=== PATIENT | female | born 1970 | race Hispanic/Latino ===

== ENCOUNTER → 2024-08-17 | Day surgery (SDC) | payer OTHER ==
[~2024-08-17] MED LIST: COLLAGEN PO; ELMIRON100 MG PO; FENTANYL CITRATE/PF 100MCG/2 ML INJ ONE; HYOSCYAMINE SULFATE 0.5 MG/ML INJ ONE; LIDOCAINE HCL 2% LOCAL INJ 5 ML SDV VIAL INJ ONE; OZEMPIC2 MG/0.75 SC; PROPOFOL IV EMULSION 10 MG/ML 20 ML VIAL ONE; PROPOFOL IV EMULSION 50 ML IV ONE; VIIBRYD20 MG PO; VIT B PO; Z ENJUVIA PO; Z.0.CRESTOR10 MG PO; Z.0.LEXAPRO20 MG PO; Z.0.VALTREX500 MG PO; ZOCOR20 MG PO
[2024-08-17] MEDS: LACTATED RINGER'S 1,000 ML ONE (09:47)
[2024-08-17 12:14] VITALS: TEMP 97.6
[2024-08-17 12:36] VITALS: BP 118/85; PULSE 90; RESP 18; O2SAT 100
== END | disposition home or self-care (01) ==
LOC: OR 09:05
PROVIDERS: ATTEND Internal Medicine Gastroenterology
DX: K29.50 Unspecified chronic gastritis without bleeding (principal); D12.2 Benign neoplasm of ascending colon; K31.7 Polyp of stomach and duodenum; K20.90 Esophagitis, unspecified without bleeding; K57.30 Diverticulosis of large intestine without perforation or abscess without bleeding; K21.9 Gastro-esophageal reflux disease without esophagitis; K58.9 Irritable bowel syndrome, unspecified; K64.8 Other hemorrhoids; E11.9 Type 2 diabetes mellitus without complications; E78.5 Hyperlipidemia, unspecified; M06.9 Rheumatoid arthritis, unspecified; F32.A Depression, unspecified; Z01.810 Encounter for preprocedural cardiovascular examination; Z79.85 Long-term (current) use of injectable non-insulin antidiabetic drugs; Z79.899 Other long term (current) drug therapy; Z80.0 Family history of malignant neoplasm of digestive organs
CPT/HCPCS: 43239; 43251; 45380; 93005; J1980; J2003; J2470; J2704 ×2; J3010; J7121; 45378; 45385